=== PATIENT | female | born 1985 | race Caucasian/White ===

== ENCOUNTER 2021-10-03 12:02 | Emergency (ER) | payer OTHER, SELFPAY ==
--- NOTE | 2021-10-03 12:16 | ED.EYEPROB ---
HPI - Eye Problem General Chief complaint: Eye Problems Stated complaint: Eye Problem Time Seen by Provider: 10/03/21 12:06 Source: patient and RN notes reviewed History of Present Illness HPI Narrative: Patient is a 35-year-old female who presents the urgent care with complaints of redness, swelling and drainage from the right eye. Patient states that 2 days ago she poked her eye with liquid eyeliner pen and it is continued to worsen. Patient states she did use gentamicin drops 1 time to the eye. Denies of any vision changes. No other acute complaints. No acute distress noted. Patient aware of the plan of care. Some parts of this dictation were generated by voice recognition software and may contain typographical and/or grammatical inaccuracies. Related Data Allergies Allergy/AdvReac Type Severity Reaction Status Date / Time No Known Allergies Allergy Verified 10/03/21 12:21 Review of Systems Review of Systems: CONSTITUTIONAL: Denies fever, chills, or sweats. EYES: Reports of redness, drainage and mild swelling to the right eye ENT: Denies rhinorrhea, congestion, sore throat, or otalgia. CARDIOVASCULAR: Denies chest pain, palpitations, or edema. RESPIRATORY: Denies cough or dyspnea. GASTROINTESTINAL: Denies abdominal pain, nausea, vomiting, or diarrhea. GENITOURINARY: Denies dysuria or hematuria. SKIN: Denies rash or itching. MUSCULOSKELETAL: Denies back pain, joint pain, or myalgia. NEUROLOGIC: Denies headache, numbness, or weakness. All other systems reviewed are negative, except as documented in HPI. PMFSH Comments At the time of my signature, I reviewed and agree with the nursing past medical, surgical, social, and family history. There is no relevant family history pertinent to the patient complaint. Exam Narrative: GENERAL: This is a well-nourished, well-developed patient, in no apparent distress. HEAD: normocephalic, atraumatic. EYES: PERRL. left Sclera clear/white. Right injected conjunctive a with erythemic sclera without obvious trauma. Thick yellow drainage to the inner canthus of the right. Mild right upper eyelid edema. Vision is grossly intact. EARS: External ears normal NOSE: External nose normal with no obvious nasal discharge, nares without redness, no rhinorrhea. THROAT: Mucous membranes moist NECK: Neck supple SKIN: warm, intact with no suspicious lesions or rash, good texture and turgor. NEURO: awake, alert, and oriented to person, place and time. There were no obvious focal neurologic abnormalities. EXTREMITIES: No clubbing, cyanosis, or edema. Course Course Level of Care: Express Care Visit Vital Signs Vital signs: Vital Signs Temperature 98.6 F 10/03/21 12:18 Pulse Rate 82 10/03/21 12:18 Respiratory Rate 18 10/03/21 12:18 Blood Pressure 116/72 10/03/21 12:18 Pulse Oximetry 100 10/03/21 12:18 Oxygen Delivery Room Air 10/03/21 12:18 Temperature 98.6 F 10/03/21 12:18 Pulse Rate 82 10/03/21 12:18 Respiratory Rate 18 10/03/21 12:18 Blood Pressure 116/72 10/03/21 12:18 Pulse Oximetry 100 10/03/21 12:18 Oxygen Delivery Room Air 10/03/21 12:18 Reviewed MDM - Eye Problem MDM Narrative Medical decision making narrative: Advised patient take a daily antihistamine for the drainage and itch such as Zyrtec or Claritin. Use Benadryl prior to bedtime. Use the eyedrops to the right eye as directed, wiping the applicator tip after each application. May use a cool or warm compress for comfort. If you develop any increase in symptoms associated with swelling or vision change?go to the [facility] or the emergency room. Follow-up with your PCP within 2 to 5 days or for worsening symptoms or failure to improve. Differential Diagnosis Differential diagnosis: Likely corneal abrasion, conjunctivitis, acute iritis, hyphema, periorbital cellulitis and subconjunctival hemorrhage Critical Care Time Critical Care Time Critical Care Time: No Discharge Plan
[2021-10-03 12:18] VITALS: BP 116/72; PULSE 82; RESP 18; TEMP 37; O2SAT 100
== END 2021-10-03 12:33 | disposition home or self-care (01) ==
PROVIDERS: Emergency Provider Nurse Practitioner Family
DX: H10.9 Unspecified conjunctivitis (principal); J45.909 Unspecified asthma, uncomplicated
CPT/HCPCS: 99213; G0463

== ENCOUNTER 2022-10-21 11:10 | Emergency (ER) | payer OTHER, SELFPAY ==
--- NOTE | 2022-10-21 11:17 | ED.EYEPROB ---
HPI - Eye Problem General Chief complaint: Eye Problems Stated complaint: Right Eye Problem Source: patient and RN notes reviewed History of Present Illness HPI Narrative: 36 yo F Presents to urgent care with complaints of right eye pain and drainage. Pt states last night, she was putting Algaecide in her pool around 8/9:00pm, when a dot of the fluid splashed back into her right eye. Pt states she irrigated her eye for approximately 5-10 minutes. Pt states she has been having yellow drainage from the eye every since and has pain with EOM and behind her eye. Pt reports some blurriness in this eye as well. Pt does not wear contacts. Pt has no other complaints. Pt is unknown on her last tetanus vaccine. Related Data Allergies Allergy/AdvReac Type Severity Reaction Status Date / Time tramadol Allergy Unknown Verified 11/17/21 11:35 Review of Systems Review of Systems: CONSTITUTIONAL: Denies fever, chills, or sweats. EYES: Right eye drainage, pain with EOM, and some blurriness. ENT: Denies otalgia and sore throat CARDIOVASCULAR: Denies chest pain, palpitations, or edema. RESPIRATORY: Denies cough or dyspnea. GASTROINTESTINAL: Denies abdominal pain, nausea, vomiting, or diarrhea. GENITOURINARY: Denies dysuria or hematuria. SKIN: Denies rash or itching. MUSCULOSKELETAL: Denies back pain, joint pain, or myalgia. NEUROLOGIC: Denies headache, numbness, or weakness. Pertinent positives per HPI. PMFSH Comments At the time of my signature, I reviewed and agree with the nursing past medical, surgical, social, and family history. There is no relevant family history pertinent to the patient complaint. Exam Narrative: GENERAL: This is a well-nourished, well-developed patient, in no apparent distress. HEAD: normocephalic, atraumatic. EYES: Right inner sclera erythrmic. No drainage. conjunctiva mildly injected. Hitchcock lamp exam performed and small abrasion noted to 4:00 position. lid inversion performed with no FB findings. EARS: External ears normal, auditory canals clear and without drainage. Hearing grossly intact. NOSE: External nose normal with no obvious nasal discharge, nares without redness, no rhinorrhea. THROAT: Mucous membranes moist, posterior pharynx clear. NECK: Neck supple, non-tender without lymphadenopathy, masses or thyromegaly. CARDIOVASCULAR: Regular rate RESPIRATORY:No respiratory distress SKIN: warm, intact with no suspicious lesions or rash, good texture and turgor. NEURO: awake, alert, and oriented to person, place and time. There were no obvious focal neurologic abnormalities. Course Course Level of Care: Express Care Visit Vital Signs Vital signs: Vital Signs Temperature 98.1 F 10/21/22 11:20 Pulse Rate 87 10/21/22 11:20 Respiratory Rate 18 10/21/22 11:20 Blood Pressure 142/89 H 10/21/22 11:20 Pulse Oximetry 99 10/21/22 11:20 Oxygen Delivery Room Air 10/21/22 11:20 Temperature 98.1 F 10/21/22 11:20 Pulse Rate 87 10/21/22 11:20 Respiratory Rate 18 10/21/22 11:20 Blood Pressure 142/89 H 10/21/22 11:20 Pulse Oximetry 99 10/21/22 11:20 Oxygen Delivery Room Air 10/21/22 11:20 Reviewed MDM - Eye Problem MDM Narrative Medical decision making narrative: Spoke to Art with [facility] who recommends testing with pH strip if possible and ensuring pH is neutral (between 7.0-8.0). Also recommends irrigating and doing fluorescein test. Recommends eye drops and follow up with Ophthalmology. No pH test strips available here in clinic. Pt's eye was irrigated with eye wash and Hitchcock lamp exam performed. Pt placed on Abx gtts and to follow up with Ophthalmology this week. Pt was given [facility] number, , to follow up with. Differential Diagnosis Differential diagnosis: Likely corneal abrasion, conjunctivitis and corneal ulcer Critical Care Time Critical Care Time Critical Care Time: No Discharge Plan Discharge Clinical I
[2022-10-21 11:20] VITALS: BP 142/89; PULSE 87; RESP 18; TEMP 36.7; O2SAT 99
--- NOTE | 2022-10-21 12:27 | PC.NURSE ---
noted refused tetanus vaccine, ibuprofen during stay
== END 2022-10-21 12:00 | disposition home or self-care (01) ==
PROVIDERS: Emergency Provider Nurse Practitioner Family
DX: Z77.098 Contact with and (suspected) exposure to other hazardous, chiefly nonmedicinal, chemicals (principal); S05.01XA Injury of conjunctiva and corneal abrasion without foreign body, right eye, initial encounter; X58.XXXA Exposure to other specified factors, initial encounter; J45.909 Unspecified asthma, uncomplicated
CPT/HCPCS: 99213; A9270; G0463

== ENCOUNTER 2022-11-23 12:05 | Emergency (ER) | payer OTHER, SELFPAY ==
[2022-11-23 12:12] VITALS: BP 135/83; PULSE 88; RESP 20; TEMP 36.4; O2SAT 100
--- NOTE | 2022-11-23 12:23 | ED.URI ---
HPI - URI/Sore Throat General Chief Complaint: Upper Respiratory Infection Stated Complaint: Sore Throat/Cough Time Seen by Provider: 11/23/22 12:23 Source: patient Mode of arrival: ambulatory Limitations: no limitations History of Present Illness HPI Narrative: 36 yo F presents with c/o sore throat, nasal congestion, cough, fatigue for 5 days. Taking OTC meds to treat symptoms. afebrile. Symptoms improving except for cough. hx of asthma. feels a little SOB with exertion. Using inhaler as prescribed. Has nebulizer at home but has not given herself a tx. pt's son diagnosed with influenza this AM. pt states her symptoms started first. All systems reviewed and negative except as noted above. Related Data Home Medications Medication Instructions Recorded Confirmed albuterol sulfate 90 mcg/actuation 2 puff inhalation QID 11/23/22 11/23/22 aerosol inhaler Allergies Allergy/AdvReac Type Severity Reaction Status Date / Time tramadol Allergy Unknown Unknown Verified 11/23/22 12:24 Review of Systems Review of Systems: CONSTITUTIONAL: Denies fever, chills, or sweats. EYES: Denies visual changes, redness, or discharge. ENT: Reports rhinorrhea, congestion, sore throat. Denies otalgia. CARDIOVASCULAR: Denies chest pain, palpitations, or edema. RESPIRATORY: Reports cough. Do dyspnea. GASTROINTESTINAL: Denies abdominal pain, nausea, vomiting, or diarrhea. GENITOURINARY: Denies dysuria or hematuria. SKIN: Denies rash or itching. MUSCULOSKELETAL: Denies back pain, joint pain, or myalgia. NEUROLOGIC: Denies headache, numbness, or weakness. PSYCHIATRIC: Denies anxiety or depression. All other systems reviewed are negative, except as documented in HPI. PMFSH Comments At time of signature, agree with nursing past medical, surgical, social and family history. There is no relevant family history pertinent to the presenting complaint. Exam Narrative: GENERAL: This is a well-nourished, well-developed patient, in no apparent distress. HEAD: normocephalic, atraumatic. EYES: PERRL. Sclera clear/white. Vision is grossly intact. EARS: External ears normal, auditory canals clear and without drainage, TMs normal without perforation. Hearing grossly intact. NOSE: External nose normal with no obvious nasal discharge, nares without redness, no rhinorrhea. THROAT: Mucous membranes moist, posterior pharynx clear. NECK: Neck supple, non-tender without lymphadenopathy, masses or thyromegaly. CARDIOVASCULAR: Regular rate and rhythm without murmurs, gallops, or rubs. RESPIRATORY: Mild expiratory wheeze to bilateral lower lung garcia. No rales, or rhonchi. SKIN: warm, Dry, intact with no suspicious lesions or rash, good texture and turgor. NEURO: awake, alert, and oriented to person, place and time. There were no obvious focal neurologic abnormalities. EXTREMITIES: No joint tenderness, effusion, or edema noted. Course Course Level of Care: Express Care Visit Vital Signs Vital signs: Vital Signs Temperature 36.4 C 11/23/22 12:12 Pulse Rate 88 11/23/22 12:12 Respiratory Rate 20 11/23/22 12:12 Blood Pressure 135/83 11/23/22 12:12 Pulse Oximetry 100 11/23/22 12:12 Oxygen Delivery Room Air 11/23/22 12:12 Temperature 36.4 C 11/23/22 12:12 Pulse Rate 88 11/23/22 12:12 Respiratory Rate 20 11/23/22 12:12 Blood Pressure 135/83 11/23/22 12:12 Pulse Oximetry 100 11/23/22 12:12 Oxygen Delivery Room Air 11/23/22 12:12 Reviewed MDM - URI/Sore Throat MDM Narrative Medical decision making narrative: Patient is aware of diagnosis, understands and agrees to treatment plan. Anticipatory guidance given. Patient agrees to follow-up as directed and is aware of reasons to seek care at the emergency department. Portions of this record may have been created with voice recognition software Differential Diagnosis Differential diagnosis: Likely upper respiratory infection, viral infection and other (a
== END 2022-11-23 12:40 | disposition home or self-care (01) ==
PROVIDERS: Emergency Provider Nurse Practitioner Family
DX: J06.9 Acute upper respiratory infection, unspecified (principal); J45.901 Unspecified asthma with (acute) exacerbation
CPT/HCPCS: 87081; 87804; 87880; 99213; G0463

== ENCOUNTER 2023-07-13 13:21 | Emergency (ER) | payer OTHER, SELFPAY ==
[2023-07-13 13:34] VITALS: BP 140/88; PULSE 105; RESP 20; TEMP 37.3; O2SAT 100
--- NOTE | 2023-07-13 14:41 | ED.SKABFB ---
HPI - Skin/Abscess/Foreign Bdy General Chief complaint: Skin/Abscess/Foreign Body Stated complaint: rash around neck Source: patient, RN notes reviewed and old records reviewed Mode of arrival: ambulatory Limitations: no limitations History of Present Illness HPI narrative: 37-year-old patient to Express Care for complaint rash to left lower neck/ chest started yesterday. Patient reports rash has spread to right lower neck and right chest. Patient denies using any new products, food, exposure to new animals or any other potential environmental irritant. Patient endorses history of asthma and allergy to tramadol. Patient denies recent illness, fever. patient has not attempted to treat home. Related Data Home Medications Medication Instructions Recorded Confirmed albuterol sulfate 90 mcg/actuation 2 puff inhalation QID 11/23/22 07/13/23 aerosol inhaler Allergies Allergy/AdvReac Type Severity Reaction Status Date / Time tramadol Allergy Unknown Unknown Verified 07/13/23 16:23 Review of Systems Review of Systems: All systems reviewed & are unremarkable except as noted in HPI and below Constitutional: Constitutional: Reports as per HPI and Denies fever(s) Eyes: Eyes: Reports no additional eye complaints ENT: Reports system reviewed and no additional complaints, except as documented Cardiovascular: Cardiovascular: Reports no additional cardiovascular complaints, Denies chest pain and Denies dyspnea Respiratory: Respiratory: Reports no additional respiratory complaints, Denies cough and Denies dyspnea Musculoskeletal: Musculoskeletal: Reports no additional musculoskeletal complaints Integumentary/Breasts: Skin/Breast: Reports rash ( Bilateral lower neck; bilateral upper chest) Neurologic: Reports system reviewed and no additional complaints, except as documented Psychiatric: Psychiatric: Reports no additional psychiatric complaints PMFSH Comments At the time of my signature, I reviewed and agree with the nursing past medical, surgical, social, and family history. There is no relevant family history pertinent to the patient complaint. Exam Const: General: cooperative, healthy appearing, comfortable, no acute distress, alert and well nourished Nutritional Appearance: well nourished Orientation/consciousness: patient oriented x3 Limitations: no limitations HENMT: Head: normal to inspection Ears: external ears normal Face/Nose/Sinus: Normal external nose present, Normal nares present, normal facial exam, No erythema and No edema Face and sinus: normal facial exam, no erythema and no edema Mouth: Yes Normal oral and palatal mucosa present Throat: posterior oropharynx normal Eyes: General: appearance normal, both eyes and all related structures Neck: Neck: full ROM, no meningeal signs, no anterior neck swelling, no lymphadenopathy noted, nontender and no JVD Lymphatic: no lymphadenopathy noted and no lymphedema noted Chest: Chest palpation & inspection: normal inspection of the chest Resp: Effort & Inspection: normal respiratory effort and able to speak in complete sentences Auscultation: clear to auscultation bilaterally Cardio: Jugular venous distension: no JVD Rate: regular rate Rhythm: regular rhythm Back/Spine/Pelvis: Cervical Spine: cervical ROM normal Skin: General skin exam: rashes ( bilateral lower neck; bilateral upper chest) Neuro: General: patient oriented x3, gait normal, moves all extremities and no meningeal signs Speech: normal speech Gait exam (Neuro): Normal gait present Extrem: General: normal to inspection, full ROM and capillary refill normal Psych: Appearance: grossly normal and well kempt Course Course Emergency Course: Some parts of this dictation were generated by voice recognition software and may contain typographical and/or grammatical inaccuracies. Level of Care: Express Care Visit Vital Signs Vital signs: Vital Signs Temperature 37.3 C 07/13/23 13
== END 2023-07-13 15:30 | disposition home or self-care (01) ==
PROVIDERS: Emergency Provider Nurse Practitioner Family
DX: L25.9 Unspecified contact dermatitis, unspecified cause (principal); J45.909 Unspecified asthma, uncomplicated
CPT/HCPCS: 99213; G0463